=== PATIENT | female | born 1985 | race Caucasian/White ===

== ENCOUNTER 2021-06-05 02:24 | Emergency (ER) | payer BC ==
[~2021-06-05] VITALS: Ht 165.1 cm; Wt 132.7 kg
[2021-06-05] MEDS ORDERED: PROZAC20 M1 PO (02:35)
[2021-06-05] MEDS ORDERED: ADIPEX-P37.5 M2 PO (02:35)
[2021-06-05] MEDS ORDERED: WOMEN'S DAILY F1 TAB PO (02:35)
[2021-06-05] MEDS ORDERED: ZESTRIL10 M1 PO (02:35)
[2021-06-05] MEDS ORDERED: ADDERALL 10 MG10 MG PO (02:36)
[2021-06-05] MEDS ORDERED: MYDAYIS ER 3737.5 MG PO (02:36)
[2021-06-05 03:18] LABS: BASO # 0.03 (0.02-0.10); EOS # 0.06 (0.04-0.40); EOS % 0.4 % (1.0-5.0); HEMATOCRIT 36.7 % (37.0-47.0); HEMOGLOBIN 11.7 g/dL (12.5-16.0); LYMPH# 2.29 (1.50-4.00); MEAN CELL VOLUME 90 fl (78-100); MEAN CORPUSCULAR HEMOGLOBIN 29 pg (27-31); MEAN CORPUSCULAR HGB CONC 32 g/dL (33-37); MEAN PLATELET VOLUME 10.6 fl (7.4-10.4); MONO # 0.91 (0.20-0.80); NEU # 11.94 (1.40-6.50); PLATELET COUNT 245 K/mm3 (130-400); RED BLOOD COUNT 4.09 M/mm3 (4.10-5.30); RED CELL DISTRIBUTION WIDTH 12.9 % (11.5-14.5); WHITE BLOOD COUNT 15.3 K/mm3 (4.8-10.8)
[2021-06-05 03:27] LABS: URINE APPEARANCE CLEAR; URINE COLOR YELLOW
[2021-06-05 03:27] LABS: ALBUMIN 3.9 g/dL (3.5-5.0); POTASSIUM 3.6 mmol/L (3.5-5.1)
[2021-06-05 03:28] LABS: CALCIUM 9.3 mg/dL (8.3-10.5)
[2021-06-05 03:28] LABS: PH-URINE 5.5 (5.0 - 8.0); URINE BILIRUBIN NEGATIVE (NEGATIVE); URINE BLOOD TRACE (NEGATIVE); URINE GLUCOSE NEGATIVE (NEGATIVE); URINE KETONE NEGATIVE (NEGATIVE); URINE LEUKOCYTE ESTERASE NEGATIVE (NEGATIVE); URINE MUCUS PRESENT (NOT PRESENT); URINE NITRATE NEGATIVE (NEGATIVE); URINE PROTEIN(semi-quant) NEGATIVE (NEGATIVE); URINE UROBILINOGEN NORMAL (NORMAL); URINE WBC 0-1 /hpf (0-3)
[2021-06-05 03:30] LABS: TOTAL PROTEIN 7.1 g/dL (6.4-8.3)
[2021-06-05 03:31] LABS: TOTAL BILIRUBIN 0.4 mg/dL (0.2-1.2)
[2021-06-05 07:16] VITALS: BP 131/69
== END 2021-06-05 07:20 | disposition home or self-care (01) ==
LOC: ED 02:24
PROVIDERS: Family Medicine
DX: N13.2 Hydronephrosis with renal and ureteral calculous obstruction (principal); F90.9 Attention-deficit hyperactivity disorder, unspecified type; E66.01 Morbid (severe) obesity due to excess calories; Z90.49 Acquired absence of other specified parts of digestive tract; Z79.899 Other long term (current) drug therapy; Z68.42 Body mass index [BMI] 45.0-49.9, adult
CPT/HCPCS: J1885; J2270

== ENCOUNTER → 2021-09-28 | Outpatient (CLI) | payer BC ==
[~2021-09-28] MED LIST: ADDERALL 10 MG10 MG PO; ADIPEX-P37.5 M2 PO; MYDAYIS ER 3737.5 MG PO; PROZAC20 M1 PO; WOMEN'S DAILY F1 TAB PO; ZESTRIL10 M1 PO
== END ==
LOC: LAB 12:05
DX: Z02.1 Encounter for pre-employment examination (principal)